=== PATIENT | female | born 1995 | race Caucasian/White ===

== ENCOUNTER 2017-04-04 19:37 | Inpatient (IN) | payer MEDICAID ==
[~2017-04-04] VITALS: Ht 165.1 cm; Wt 88.0 kg
[2017-04-04 20:00] VITALS: BP 113/58; RESP 18
[2017-04-04] MEDS ORDERED: FERR134T PO (20:07)
[2017-04-04] MEDS ORDERED: PRENAT PO (20:07)
--- NOTE | 2017-04-04 20:28 | TRIAGE ---
OB Triage Datetime Report Generated by CPN: 04/04/2017 20:27 Datetime: 04/04/2017 20:05 Vaginal Exam Membrane Status: Intact Datetime: 04/04/2017 20:04 EGA: 40.5 Datetime: 04/04/2017 20:01 Time of Arrival: 04/04/2017 19:30 Arrived By: Ambulatory Arrived From: Home Chief Complaint: states sent from clinic for induction d/t postdates, 5lb wt gain last week, and LEI off and on last week. Hx 1st prgnancy almost 10lb baby, PIH, and A1DM. Movement: Decreased Contractions: Denies/Absent Rupture of Membranes: Denies Vaginal Bleeding: None Vaginal Discharge: Denies Recent Sexual Intercouse: Denies Abdominal Trauma: Not Applicable Patient Complaints: None Time Provider Notified: 04/04/2017 20:10 Provider Notified: Dr Gooden Initial Plan: ELKE
[2017-04-04] MEDS ORDERED: MISOPROSTOL 200 MCG TAB PR PRN (20:30)
[2017-04-04] MEDS ORDERED: OXYTOCIN 30 UNITS/LR 500 ML IV PRN (20:30)
[2017-04-04] MEDS ORDERED: OXYTOCIN 30 UNITS/LR 500 ML IV SCH ×2 (20:30)
[2017-04-04] MEDS ORDERED: BUTORPHANOL 2 MG INJ IV PRN (20:30)
[2017-04-04] MEDS ORDERED: METHYLERGONOVINE 0.2 MG INJ IM PRN (20:30)
[2017-04-04] MEDS ORDERED: CARBOPROST 250 MCG INJ IM PRN (20:30)
[2017-04-04] MEDS ORDERED: LIDOCAINE 1% (MPF) 30 ML INJ INJ PRN (20:30)
[2017-04-04] MEDS ORDERED: IBUPROFEN 600 MG TAB PO PRN (20:30)
--- NOTE | 2017-04-04 20:36 | HP ---
Date/Time of Note Date/Time of Note DATE: 04/04/17 TIME: 20:35 OB - History Hx of Present Chief Complaint: post dates induction Care: Good Care Medical Complications: None Past Family/Social History * Past Medical, Surgical, Family and Obstetric Histories reviewed from chart. GBS Status: Negative OB Admission Exam Vital Signs Vital Signs Vital Signs Date Time Temp Pulse Resp B/P Pulse Ox O2 Delivery O2 Flow Rate FiO2 04/04/17 20:00 98.7 18 113/58 Room Air OSMAR KRUGER MD April 04, 2017 20:36
--- NOTE | 2017-04-04 20:47 | RADRPT ---
PROCEDURE: OB ultrasound for biophysical profile CLINICAL INDICATION: Biophysical profile. . Post dates TECHNIQUE: Multiple sonographic images of the pelvis were obtained. Transabdominal views are obta ined. COMPARISON: OB ultrasound 02/12/2017 FINDINGS: Single intrauterine gestation. Presentation: Cephalic. Placenta: Fundal No evidence of placental abruption. No evidence of placenta previa. breathing movement = 2/2 tone = 2/2 motion = 2/2 PRAKASH = 2/2 PRAKASH = 20.8 cm heart rate: 130 beats per minute IMPRESSION: Single intrauterine gestation. Biophysical profile 06/24 RPTAT: AADD .Wagner Arcos MD, MD Date Time Electronically viewed and signed by .Wagner Arcos MD, on 04/04/2017 20:47 .B/
--- NOTE | 2017-04-04 20:50 | RADRPT ---
PROCEDURE: Obstetrical ultrasound. CLINICAL INDICATION: , evaluation. Pelvic pain. Post dates TECHNIQUE: Transabdominal sonographic images of the pelvis are obtained. COMPARISON: OB ultrasound 02/12/2017 FINDINGS: Single intrauterine gestation. There is a cephalic presentation. Measurements were made in order to determine age. The results are as follows: BPD = 9.45 cm HC = 33.61 cm AC = 39.13 cm FL = 7.59 cm Heart rate = 137 beats per minute The placenta is fundal. There is no evidence for an abruption or placenta previa. Ovaries are not visualized. IMPRESSION: Single intrauterine gestation of approximately 38 weeks 4 days by ultrasound criteria. [place] estimated weight = 4300 g; 88 percentile for gestational age of 40 weeks 5 days. Recommend confirmation of LMP. RPTAT: AADD .Wagner Arcos MD, Date Time Electronically viewed and signed by .Wagner Arcos MD, on 04/04/2017 20:50 .B/
[2017-04-04 22:00] LABS: BARBITURATES NEGATIVE (NEGATIVE); BENZODIAZEPINES NEGATIVE (NEGATIVE); CANNABINOIDS NEGATIVE (NEGATIVE); COCAINE NEGATIVE (NEGATIVE); OPIATES NEGATIVE (NEGATIVE)
[2017-04-04] MEDS ORDERED: DINOPROSTONE 10 MG VAG SUPP VAG ONE (22:00)
[2017-04-04] MEDS ORDERED: LACTATED RINGER'S 1,000 ML IV PRN (23:00)
[2017-04-05] MEDS: LACTATED RINGER'S 1,000 ML IV SCH ×3 (01:20→18:18)
[2017-04-05 01:40] LABS: ADD SCAN DIFF NO
[2017-04-05 01:42] LABS: BASOPHILS % 0.2 % (0.0-2.0); EOSINOPHILS # 0.3 10^3/ul (0.0-0.5); EOSINOPHILS % 2.9 % (0.0-7.0); HEMATOCRIT 36.5 % (37.0-47.0); HEMOGLOBIN 12.5 g/dl (12.0-16.0); LYMPHOCYTES % 21.2 % (15.0-51.0); MEAN CORPUSCULAR HEMOGLOBIN 31.1 pg (29.0-33.0); MEAN CORPUSCULAR HGB CONC 34.2 g/dl (32.0-37.0); MEAN CORPUSCULAR VOLUME 90.8 fl (82.0-101.0); MEAN PLATELET VOLUME 10.1 fl (7.4-10.4); MONOCYTE # 0.7 10^3/ul (0.3-0.9); MONOCYTES % 7.7 % (0.0-11.0); NEUTROPHIL # 6.4 10^3/ul (1.6-7.5); NEUTROPHILS % 67.3 % (39.0-77.0); PLATELET COUNT 277 10^3/UL (140-415); RED BLOOD COUNT 4.02 10^6/ul (4.20-5.40); RED CELL DISTRIBUTION WIDTH 12.5 % (11.5-14.5); WHITE BLOOD COUNT 9.5 10^3/ul (4.8-10.8)
[2017-04-05 02:33] LABS: INR 0.96; PROTIME 12.8 Sec (12.2-14.2)
[2017-04-05 02:34] LABS: PARTIAL THROMBOPLASTIN TIME 31.1 Sec (25.0-35.0)
[2017-04-05] MEDS ORDERED: OXYTOCIN 30 UNITS/LR 500 ML IV SCH (14:00)
[2017-04-06] MEDS: LACTATED RINGER'S 1,000 ML IV SCH ×2 (03:30→12:33)
--- NOTE | 2017-04-06 10:59 | QN ---
Documentation Comment 2 para 1 , 41 weeks was admitted for induction pelvic examination at this time cervix is 3 cm dilated 70% effaced vertex -2 station patient on Pitocin IV drip for labor augmentation. ALLIE LAZO MD April 06, 2017 10:59
[2017-04-06] MEDS ORDERED: EPHEDrine SULFATE 50 MG/5 ML SYG IV PRN (12:30)
[2017-04-06] MEDS ORDERED: NALOXONE (0.4 MG/ML) INJ IV PRN (12:30)
[2017-04-06] MEDS ORDERED: FENTAnyl 2MCG/ML-ROPIV 0.2% 100 ML BAG EPI SCH (12:30)
[2017-04-06] MEDS ORDERED: ONDANSETRON 4 MG INJ IV PRN ×2 (12:30→18:00)
--- NOTE | 2017-04-06 15:40 | LDN ---
Date/Time of Note Date/Time of Note DATE: 04/06/17 TIME: 15:36 Delivery Summary Normal spontaneous vaginal delivery of a baby boy from BERTHA position shoulders delivered without any difficulties rest of the baby's body followed nuchal cord 1 ,cord clamped after stopped pulsation, placenta spontaneous expulsion inspected complete blood loss 200 mL patient sustained half a centimeter perineal repaired with 4-0 chromic catgut Weeks of Gestation 40 weeks and 6 days Placenta Delivered: Spontaneously Meconium: none Episiotomy: No Laceration repair: 1/2 centimeters perineal laceration repaired with 4-0 chromic catgut Anesthesia type: Epidural Estimated blood loss: 200 Sponge & Needle done & correct: Yes All needle counts correct: Yes Any foreign bodies felt in the: No Problems: Delivery Information Sex Infant Sex: male Apgars 1 Minute: 9 5 Minute: 9 Suctioning Nose & mouth suctioned at rebekah: Yes Delee suction performed: No Umbilical Cord Umbilical cord with: 3 Vessels Cord presentations: nuchal cord Cord Blood was obtained: Yes ALLIE LAZO MD April 06, 2017 15:40
[2017-04-06] MEDS ORDERED: BENZOCAINE 20% 56 ML SPRAY TOP PRN (18:00)
[2017-04-06] MEDS ORDERED: ACETAMINOPHEN 325 MG TAB PO PRN (18:00)
[2017-04-06] MEDS ORDERED: ACETAMINOPHEN/CODEINE #3 TAB PO PRN ×2 (18:00)
[2017-04-06] MEDS ORDERED: CARBOPROST 250 MCG INJ IM PRN (18:00)
[2017-04-06] MEDS ORDERED: OXYTOCIN 30 UNITS/LR 500 ML IV PRN (18:00)
[2017-04-06] MEDS ORDERED: METHYLERGONOVINE 0.2 MG INJ IM PRN (18:00)
[2017-04-06] MEDS ORDERED: DIBUCAINE 1% 30 GM OINT PR PRN (18:00)
[2017-04-06] MEDS ORDERED: WITCH HAZEL/GLYCERIN PAD PR PRN (18:00)
[2017-04-06] MEDS ORDERED: OXYCODONE/ASPIRIN (4.88/325) TAB PO PRN ×2 (18:00)
[2017-04-06] MEDS ORDERED: MISOPROSTOL 200 MCG TAB PR PRN (18:00)
[2017-04-06] MEDS ORDERED: LANOLIN 7 GM TUBE TOP PRN (18:00)
[2017-04-06] MEDS: IBUPROFEN 600 MG TAB PO SCH (18:00)
[2017-04-06 18:10] VITALS: BP 109/62; PULSE 73; RESP 19
[2017-04-06 20:05] VITALS: BP_SYST 18; PULSE 78; RESP 18
[2017-04-06] MEDS: OXYTOCIN 30 UNITS/LR 500 ML IV SCH ×2 (21:34→21:57)
[2017-04-06] MEDS: SENNA/DOCUSATE NA (8.6MG/50MG) TAB PO SCH (21:52)
[2017-04-07 00:30] VITALS: BP 110/62; RESP 17
[2017-04-07] MEDS: IBUPROFEN 600 MG TAB PO SCH ×5 (00:30→23:54)
[2017-04-07 04:05] VITALS: BP 109/58; RESP 18
[2017-04-07 07:21] LABS: ADD SCAN DIFF NO
[2017-04-07 07:25] LABS: BASOPHILS % 0.2 % (0.0-2.0); EOSINOPHILS # 0.5 10^3/ul (0.0-0.5); EOSINOPHILS % 3.7 % (0.0-7.0); HEMATOCRIT 36.2 % (37.0-47.0); HEMOGLOBIN 12.1 g/dl (12.0-16.0); LYMPHOCYTES # 2.8 10^3/ul (0.8-2.9); LYMPHOCYTES % 21.1 % (15.0-51.0); MEAN CORPUSCULAR HEMOGLOBIN 30.9 pg (29.0-33.0); MEAN CORPUSCULAR HGB CONC 33.4 g/dl (32.0-37.0); MEAN CORPUSCULAR VOLUME 92.6 fl (82.0-101.0); MEAN PLATELET VOLUME 10.7 fl (7.4-10.4); MONOCYTE # 1.2 10^3/ul (0.3-0.9); MONOCYTES % 8.7 % (0.0-11.0); NEUTROPHIL # 8.7 10^3/ul (1.6-7.5); NEUTROPHILS % 65.5 % (39.0-77.0); PLATELET COUNT 241 10^3/UL (140-415); RED BLOOD COUNT 3.91 10^6/ul (4.20-5.40); RED CELL DISTRIBUTION WIDTH 12.7 % (11.5-14.5); WHITE BLOOD COUNT 13.3 10^3/ul (4.8-10.8)
[2017-04-07 08:00] VITALS: BP 97/49; PULSE 59; RESP 19
[2017-04-07] MEDS: SENNA/DOCUSATE NA (8.6MG/50MG) TAB PO SCH ×2 (09:00→22:05)
[2017-04-07 12:54] VITALS: BP 94/48; PULSE 72; RESP 18
--- NOTE | 2017-04-07 13:57 | PN ---
Date/Time of Note Date/Time of Note DATE: 04/07/17 TIME: 13:56 OB Subjective Subjective Subjective day 1 Afebrile vital signs stable abdomen soft uterus firm lochia normal extremity normal ambulation encouraged Laboratory Tests Test 04/07/17 06:40 White Blood Count 13.310^3/ul Red Blood Count 3.9110^6/ul Hemoglobin 12.1g/dl Hematocrit 36.2% Mean Corpuscular Volume 92.6fl Mean Corpuscular Hemoglobin 30.9pg Mean Corpuscular Hemoglobin Concent 33.4g/dl Red Cell Distribution Width 12.7% Platelet Count 61309^3/UL Mean Platelet Volume 10.7fl Neutrophils % 65.5% Lymphocytes % 21.1% Monocytes % 8.7% Eosinophils % 3.7% Basophils % 0.2% Nucleated Red Blood Cells % 0.0/100WBC Neutrophils # 8.710^3/ul Lymphocytes # 2.810^3/ul Monocytes # 1.210^3/ul Eosinophils # 0.510^3/ul Basophils # 0.010^3/ul Nucleated Red Blood Cells # 0.010^3/ul Current Medications Medications (Trade) Dose Ordered Sig/Dieudonne Route PRN Reason Start Time Stop Time Status Last Admin Dose Admin Lactated Ringer's (Lr) 1,000 ml @ 125 mls/hr Q8H IV 04/04/17 20:09 04/06/17 17:39 DC 04/06/17 12:33 Butorphanol Tartrate (Stadol) 2 mg Q2H PRN IV PAIN 04/04/17 20:30 04/06/17 17:39 DC Lidocaine 30 ml 30 ml ONCE PRN INJ EPISIOTOMY/TEARING 04/04/17 20:30 04/06/17 17:39 DC Oxytocin/Lactated Ringer's 500 ml @ 125 mls/hr ONCE -MAY REPEAT X1 IV 04/04/17 20:30 04/06/17 17:39 DC Oxytocin/Lactated Ringer's 500 ml @ 125 mls/hr ONCE IV 04/04/17 20:30 04/06/17 17:39 DC 04/06/17 15:59 Ibuprofen 600 mg 600 mg ONCE PRN PO Mild Pain (Pain Score 1-3) 04/04/17 20:30 04/06/17 17:40 DC Lactated Ringer's 1,000 ml @ 2,000 mls/hr Q30M PRN IV PRE-EPIDURAL BOLUS 04/04/17 23:00 04/06/17 17:40 DC 04/06/17 11:25 Oxytocin/Lactated Ringer's 500 ml @ 0 mls/hr ONCE PRN IV For Hemorrhage Management 04/04/17 20:30 04/06/17 17:40 DC Methylergonovine Maleate (Methergine) 0.2 mg ONCE PRN IM VAGINAL BLEEDING 04/04/17 20:30 04/06/17 17:40 DC Carboprost Tromethamine (Hemabate) 250 mcg ONCE PRN IM VAGINAL BLEEDING 04/04/17 20:30 04/06/17 17:40 DC Misoprostol (Cytotec) 1,000 mcg ONCE PRN NM VAGINAL BLEEDING 04/04/17 20:30 04/06/17 17:40 DC Dinoprostone 10 mg 10 mg ONCE ONCE VAG 04/04/17 22:00 04/04/17 22:01 DC 04/05/17 01:32 Oxytocin/Lactated Ringer's 500 ml @ 0 mls/hr Q0M IV 04/05/17 14:00 04/06/17 17:40 DC 04/05/17 14:02 Naloxone HCl (Narcan) 0.1 mg Q2M PRN IV FOR RESP RATE 8 OR LESS 04/06/17 12:30 04/06/17 17:40 DC Ondansetron HCl (Zofran Inj) 4 mg Q6H PRN IV NAUSEA AND/OR VOMITING 04/06/17 12:30 04/06/17 17:40 DC Fentanyl/ Ropivacaine 100 ml EPIDURAL INFUSION EPI 04/06/17 12:30 04/06/17 17:40 DC Ephedrine Sulfate 5 mg 5 mg PRN PRN IV BLOOD PRESSURE SUPPORT 04/06/17 12:30 04/06/17 17:40 DC Oxytocin/Lactated Ringer's 500 ml @ 125 mls/hr Q4H IV 04/06/17 17:34 04/07/17 01:33 DC 04/06/17 21:57 Ibuprofen (Motrin) 600 mg Q6 PO 04/06/17 18:00 04/07/17 11:38 Acetaminophen (Tylenol Tab) 650 mg Q4H PRN PO PAIN LEVEL 1-5 04/06/17 18:00 Acetaminophen/ Codeine Phosphate (Tylenol No.3) 1 tab Q4H PRN PO PAIN LEVEL 1-5 04/06/17 18:00 Acetaminophen/ Codeine Phosphate (Tylenol No.3) 2 tab Q4H PRN PO PAIN LEVEL 6-10 04/06/17 18:00 Oxycodone/Aspirin (Percodan) 1 tab Q3H PRN PO PAIN LEVEL 1-5 04/06/17 18:00 04/06/17 22:18 Oxycodone/Aspirin (Percodan) 2 tab Q3H PRN PO PAIN LEVEL 6-10 04/06/17 18:00 Ondansetron HCl (Zofran Inj) 4 mg Q6H PRN IV NAUSEA AND/OR VOMITING 04/06/17 18:00 Senna/Docusate Sodium (Senokot-S) 1 tab BID PO 04/06/17 21:00 04/06/17 21:52 Witch [place]/ Glycerin (Tucks Pads) 1 pad BEDSIDE MEDICATION PRN NM HEMORRHOID/EPISIOTMY PAIN 04/06/17 18:00 04/06/17 21:53 Benzocaine (Dermoplast [place]) 1 spray BEDSIDE MEDICATION PRN TOP HEMORRHOID/EPISIOTMY PAIN 04/06/17 18:00 04/06/17 21:52 Dibucaine (Nupercainal) 1 applic BEDSIDE MEDICATION PRN NM HEMORRHOID/EPISIOTMY PAIN 04/06/17 18:00 Lanolin (Gnc-A-Fwzvmx) 1 applic BEDSIDE MEDICATION PRN TOP BEDSIDE FOR SARAH TO NIPPLES 04/06/17 18:00 04/06/17 21:53 Measles/Mumps/ Rubella Vaccine Live 0.5 ml 0.5 ml ONCE ONCE SC* 04/08/17 09:00 04/08/17 09:01 Oxytocin/Lactated Ringer's 500 ml @ 0 mls/hr ONCE PRN IV For Hemorrhage Management 04/06/17 18:00 Methylergonovine Maleate (Methergine) 0.2 mg ONCE PRN IM VAGINAL BLEEDING 04/06/17 18:00 Carboprost Tromethamine (Hemabate) 250 mcg ONCE PRN IM VAGINAL BLEEDING 04/06/17 18:00 Misoprostol (Cytotec) 1,000 mcg ONCE PRN NM VAGINAL BLEEDING 04/06/17 18:00 ALLIE LAZO MD April 07, 2017 13:57
[2017-04-07 16:00] VITALS: BP 111/53; PULSE 71; RESP 18
[2017-04-07 20:00] VITALS: BP 105/65; PULSE 75; RESP 20
[2017-04-08 03:20] VITALS: BP 109/65; PULSE 78; RESP 20
[2017-04-08] MEDS: IBUPROFEN 600 MG TAB PO SCH ×2 (05:58→11:38)
[2017-04-08 08:00] VITALS: BP 111/53; PULSE 63; RESP 19
[2017-04-08] MEDS ORDERED: MEASLES,MUMPS,RUBELLA VACCINE INJ SC* ONE (09:00)
--- NOTE | 2017-04-08 09:46 | PD.PPDC ---
[employer] P[employer]ER Discharge Instruction Condition Patient Condition: Good Diet Diet: Resume Regular Diet Activity/Restrictions Activity: Normal Activity May Shower Restrictions: No Exercising No Lifting No Driving No Sexual Activity Nothing in the Vagina No 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
[2017-04-08] MEDS: SENNA/DOCUSATE NA (8.6MG/50MG) TAB PO SCH (09:48)
--- NOTE | 2017-04-08 09:48 | DS ---
Date/Time of Note Date/Time of Note DATE: 04/08/17 TIME: 09:47 Discharge Summary Admission/Discharge Info Admit Date/Time April 04, 2017 at 20:10 Discharge Date/Time April 08 at 0 945 Final Diagnosis Day 2 post normal vaginal delivery Patient Condition: Good Procedures Normal spontaneous vaginal delivery Hx of Present Illness Term Hospital Course Satisfactory uneventful Home Meds Reported Medications Ferrous Sulfate (Iron) 134 Mg Tablet, 134 MG PO, TAB 04/04/17 Multivit/Min/Fol Ac/Iron/Pren* ( S*) 1 Tab Tab, 1 TAB PO DAILY, TAB 04/04/17 Primary Care Provider Care Physician No Primary Time spent on discharge: < 30 minutes ALLIE LAZO MD April 08, 2017 09:48
== END 2017-04-08 13:50 | disposition home or self-care (01) | DRG 775 ==
LOC: OBT 19:37 → L-D 19:38 → OBT 20:10 → L-D 20:10 → PP1 04-06 18:08
PROVIDERS: ADMIT Obstetrics & Gynecology; ATTEND Obstetrics & Gynecology
PROC: 3E033VJ Introduction of Other Hormone into Peripheral Vein, Percutaneous Approach (ICD-10-PCS; 2017-04-04)
PROC: 10E0XZZ Delivery of Products of Conception, External Approach (ICD-10-PCS; principal; 2017-04-06)
PROC: 0HQ9XZZ Repair Perineum Skin, External Approach (ICD-10-PCS; 2017-04-06)
DX: O48.0 Post-term pregnancy (principal); O69.81X0 Labor and delivery complicated by cord around neck, without compression, not applicable or unspecified; O70.0 First degree perineal laceration during delivery; Z37.0 Single live birth; Z3A.41 41 weeks gestation of pregnancy
CPT/HCPCS: 62319; 76815; 76818; 80307; 85025; 85610; 85730; 86592; 86900; 86901; G0463; J2590; J3010; J7120

== ENCOUNTER 2018-09-08 21:18 | Emergency (ER) | END 2018-09-08 23:45 | disposition home or self-care (01) ==

== ENCOUNTER 2019-05-11 13:25 | Outpatient (CLI) | payer OTHER ==
[~2019-05-11] VITALS: Ht 167.6 cm; Wt 83.3 kg
[~2019-05-11 13:25] MED LIST: BEN25 PO; CIPR500T4 PO; FERR134T PO; MED4DP PO; PRENAT PO
[2019-05-11 14:25] VITALS: BP 107/53; PULSE 121; RESP 18; Ht 167.6 cm; Wt 83.3 kg
--- NOTE | 2019-05-11 16:41 | PN ---
Triage Information Date/Time Reason for visit: Uterine contractions Weeks of Gestation 32+ /Para n/a Diabetes: none Hypertention: none Objective Vital Signs Date Temp Pulse Resp B/P (MAP) Pulse Ox O2 O2 Flow FiO2 Time Delivery Rate 05/11/19 98.6 121 18 107/53 14:25 (71) Heart Rate: 140's Contractions: None Results/Medications Result Diagram: 05/11/19 1442 Results 24 hrs Laboratory Tests Test 05/11/19 14:00 05/11/19 14:30 05/11/19 14:42 Urine Color YELLOW Urine Clarity CLEAR Urine pH 6.0 Urine Specific [place] 1.011 Urine Ketones 1+ H Urine Nitrite NEGATIVE Urine Bilirubin NEGATIVE Urine Urobilinogen NEGATIVE Urine Leukocyte Esterase NEGATIVE Urine Hemoglobin NEGATIVE Urine Glucose NEGATIVE Urine Total Protein NEGATIVE Fibronectin NEGATIVE White Blood Count 9.8 # Red Blood Count 3.68 L Hemoglobin 11.2 L Hematocrit 33.1 L Mean Corpuscular Volume 89.9 Mean Corpuscular Hemoglobin 30.4 Mean Corpuscular Hemoglobin Concent 33.8 Red Cell Distribution Width 12.6 Platelet Count 186 # Mean Platelet Volume 10.5 H Immature Granulocytes % 1.200 H Neutrophils % 85.2 H Lymphocytes % 6.5 L Monocytes % 6.5 Eosinophils % 0.4 Basophils % 0.2 Nucleated Red Blood Cells % 0.0 Immature Granulocytes # 0.120 H Neutrophils # 8.3 H Lymphocytes # 0.6 L Monocytes # 0.6 Eosinophils # 0.0 Basophils # 0.0 Nucleated Red Blood Cells # 0.0 Disposition: Discharge Assessment/Plan CXL WNL BPP 08/26 FFN neg Questions answered Follow up with her provider precautions discussed BARBARA VO M.D. May 11, 2019 16:41
--- NOTE | 2019-05-11 17:09 | TRIAGE ---
OB Triage Datetime Report Generated by CPN: 05/11/2019 17:09 Datetime: 05/11/2019 16:33 Stage of : OB Triage Datetime: 05/11/2019 16:15 Labor Evaluation Frequency: 0 Monitor Mode: External Pattern: Normal: <= 5 Contractions in 10 Minutes Resting Tone [place]: Relaxed Heart Rate FHR Baseline Rate: 135 Monitor Mode: External US Variability: Moderate 6-25 bpm Accelerations: 10X10 Decelerations: None Category: Category I Pain Assessment Pain Scale: 0 Pain Presence: None/Denies Pain Type: N/A Pain Goal: 3 Pain Relief Measures: Comfort Measures Datetime: 05/11/2019 14:58 Labor Evaluation Frequency: 0 Monitor Mode: External Pattern: Normal: <= 5 Contractions in 10 Minutes Resting Tone [place]: Relaxed Heart Rate FHR Baseline Rate: 135 Monitor Mode: External US Variability: Moderate 6-25 bpm Accelerations: 10X10 Decelerations: None Category: Category I Pain Assessment Pain Scale: 2 Pain Presence: Constant Pain Type: Pressure; Ache Pain Location: Abdomen; Perineum Pain Goal: 3 Pain Relief Measures: Comfort Measures Datetime: 05/11/2019 14:16 Stage of : OB Triage Datetime: 05/11/2019 13:59 Stage of : OB Triage Assessment Type: Triage Maternal Assessment Level of Consciousness: Keenly Alert, Responsive DTR's/Clonus: DTRs 2+; No Clonus Headache: Denies Blurred Vision: No Respiratory Effort: Unlabored; Regular Rhythm; Equal Expansion Breath Sounds, Left: Clear and Equal Breath Sounds, Right: Clear and Equal Nausea/Vomiting: Denies RUQ Epigastric Pain: Denies Facial Edema: None Temperature Route: Axillary Fall Risk Assessment History of Falling: (0) No Secondary Diagnosis: (0) No Ambulatory Aid: (0) Bedrest/Nurse Assist IV Therapy: (0) No Gait: (0) Normal/Bedrest/Immobile Mental Status: (0) Oriented to Own Ability Fall Score: 0 Fall Risk Score Definition: No Risk: No action required Labor Evaluation Frequency: X1 Monitor Mode: External Duration (sec)2399: 30 Quality: Mild Pattern: Normal: <= 5 Contractions in 10 Minutes Heart Rate FHR Baseline Rate: 145 Monitor Mode: External US Variability: Moderate 6-25 bpm Accelerations: 10X10 Decelerations: None Category: Category I Pain Assessment Pain Scale: 2 Pain Presence: Intermittent Pain Type: Cramping Pain Location: Abdomen; Perineum Pain Goal: 3 Pain Relief Measures: Comfort Measures Datetime: 05/11/2019 13:58 EGA: 32.6 Datetime: 05/11/2019 13:57 Time of Arrival: 05/11/2019 13:30 Arrived By: Ambulatory Arrived From: Home Chief Complaint: C/O PERINEAL PAIN, DENIES LEAKING, BLEEDINGOR UC'S Movement: Present Contractions: Denies/Absent Rupture of Membranes: Denies Vaginal Bleeding: None Vaginal Discharge: Denies Recent Sexual Intercouse: Yes Abdominal Trauma: Not Applicable Patient Complaints: Cramping Time Provider Notified: 05/11/2019 14:16 Provider Notified: GILDA Initial Plan: MONITOR, U/A C_S, CBC, FFN, CL, BPP EFW
== END 2019-05-11 16:40 | disposition home or self-care (01) ==
LOC: OBT 13:25 → L-D 13:26 → OBT 16:40
PROVIDERS: ATTEND Obstetrics & Gynecology
DX: O47.03 False labor before 37 completed weeks of gestation, third trimester (principal); O26.893 Other specified pregnancy related conditions, third trimester; R10.2 Pelvic and perineal pain; Z3A.32 32 weeks gestation of pregnancy
CPT/HCPCS: 76815; 76817; 76818; 81003; 82731; 85025; 87086; Z7500; G0463